=== PATIENT | male | born 1985 | race Caucasian/White ===

== ENCOUNTER 2018-02-21 02:25 | Emergency (ER) | payer SELFPAY ==
[~2018-02-21] VITALS: Ht 172.7 cm; Wt 79.0 kg
[2018-02-21] MEDS ORDERED: DIPH,PERTUSS(ACELL),TET VAC/PF 0.5 ML IM-VACC ONE ×2 (02:30→02:33)
[2018-02-21] MEDS ORDERED: MORPHINE SULFATE 4 MG/ML, 1ML ONE ×2 (02:33→02:56)
[2018-02-21] MEDS: MORPHINE SULFATE 4 MG/ML, 1ML IVPush PRN ×2 (02:34→03:02)
[2018-02-21] MEDS ORDERED: OXYC-302 PO (02:42)
[2018-02-21 03:05] LABS: BASOPHILS # (AUTO) 0.03 x10^3/uL (0-0.1); BASOPHILS % (AUTO) 0 % (0-1); EOSINOPHILS # (AUTO) 0.05 x10^3/uL (0-0.4); EOSINOPHILS % (AUTO) 1 % (1-7); LYMPHOCYTES # (AUTO) 3.82 x10^3/uL (1-3.4); LYMPHOCYTES % (AUTO) 42 % (22-44); MD NO; MEAN CORPUSCULAR HEMOGLOBIN 30.6 pg (27.5-34.5); MEAN CORPUSCULAR HGB CONC 35.2 g/dL (33.2-36.2); MEAN PLATELET VOLUME 7.1 fL (7.4-10.4); MONOCYTES # (AUTO) 0.74 x10^3/uL (0.2-0.8); MONOCYTES % (AUTO) 8 % (2-9); NEUTROPHILS # (AUTO) 4.47 x10^3/uL (1.8-6.8); NEUTROPHILS % (AUTO) 49 % (42-75); PLATELET COUNT 376 x10^3/uL (130-400); RED BLOOD COUNT 5.32 x10^6/uL (4.38-5.82); RED CELL DISTRIBUTION WIDTH 12.7 % (9.4-14.8)
[2018-02-21 03:18] LABS: ALANINE AMINOTRANSFERASE 86 U/L (12-78); ALBUMIN 3.9 g/dL (3.4-5.0); ANION GAP 12 mmol/L (5-15); CHLORIDE 105 mmol/L (98-107); CREATININE 0.81 mg/dL (0.7-1.3)
[2018-02-21 03:20] LABS: ALKALINE PHOSPHATASE 95 U/L (45-117); BILIRUBIN,TOTAL 0.6 mg/dL (0.2-1.0); TOTAL PROTEIN 8.2 g/dL (6.4-8.2)
[2018-02-21] MEDS ORDERED: CEFAZOLIN PMX 1GM/50ML 50 ML ONE (04:24)
[2018-02-21] MEDS ORDERED: CEFAZOLIN PMX 1GM/50ML 50 ML IV ONE (04:30)
[2018-02-21] MEDS ORDERED: OXYcodone/APAP 10/325MG TABLET ONE (06:16)
[2018-02-21] MEDS ORDERED: OXYcodone/APAP 10/325MG TABLET PO ONE (06:30)
[2018-02-21 06:33] VITALS: BP 111/74
== END 2018-02-21 06:57 | disposition home or self-care (01) ==
LOC: ED 03:25
DX: S52.002B Unspecified fracture of upper end of left ulna, initial encounter for open fracture type I or II (principal); F17.210 Nicotine dependence, cigarettes, uncomplicated; X93.XXXA Assault by handgun discharge, initial encounter; Y93.89 Activity, other specified; Y92.410 Unspecified street and highway as the place of occurrence of the external cause; Y99.8 Other external cause status
CPT/HCPCS: 12032; 36415; 73090; 80053; 80307; 85025; 90715; 99291; J0690